=== PATIENT | female | born 1980 | race Caucasian/White ===

== ENCOUNTER → 2016-05-09 | Emergency (ER) | payer BC ==
[2016-05-09 06:50] VITALS: BP 128/85
[2016-05-09 07:41] LABS: Urine Bacteria Absent (Absent); Urine Bilirubin Negative (Negative); Urine Glucose Negative (Negative); Urine Nitrite Negative (Negative)
--- NOTE | 2016-05-11 15:57 | ED ---
Progress - Progress Note Progress Note: Pt's urine cx reveals e. coli bacteria - pt LWBS day of urine collection - needs to return to ED for assessment. Param, RN to call - discussed w/ her at 15 :56. Course/Dx - Diagnoses Provider Diagnoses: Patient left without being seen Addendum entered and electronically signed by Abimbola Dove PA 05/11/16 17:18: ED Addendum Addendum: Param could not call pt so I (Abimbola ODONNELL-C) resumed task Spoke w/ Shreya at 17:16 - she reports she could not wait at our ED the day of her sx [facility] - she was dx'd w/ UTI there and received anbx tx. No further action to be taken at this time. Addendum entered and electronically signed by Lon Woodward MD 05/12/16 00: 24: ED Addendum Addendum: anabelle
--- NOTE | 2016-05-12 14:47 | PN ---
Progress Note - Progress Note Note: urine culture positive for e coli. already on antibiotic that she was given [facility]. no further action needed at this time.
== END | disposition home or self-care (01) ==
LOC: ED 06:44
DX: R30.0 Dysuria (principal); Z53.21 Procedure and treatment not carried out due to patient leaving prior to being seen by health care provider
CPT/HCPCS: 81003; 81015; 87077; 87086; 87186; 99282

== ENCOUNTER 2019-06-18 17:44 | Emergency (ER) | payer BC, OTHER ==
--- OUTSIDE RECORDS SUMMARY | 2019-06-18 18:53 | XMS REPORT | Continuity of Care Document ---
:1980 External Reference #:[id number] Author Name MANUEL Oshea-Toshia (transmitted by agent of provider Hilda Vila) Address [address] [place] [address] Care Team Providers Name Role Phone Olman Yeh - Emergency Medicine Care Team Information Gold Leaf Roller Unavailable Luna Anderson MD Care Team Information Gold Leaf Roller [phone] Fabian Murray MD - Orthopaedic Care Team Information Gold Leaf Roller Surgery Problems Active Problems Provider Date Goiter Lizzy Tovar M.D. Onset: 02/05/2011 Depressive disorder Lizzy Tovar M.D. Onset: 02/05/2011 Social History Type Date Description Comments Sex Unknown Tobacco Use Start: Unknown Never Smoked Cigarettes ETOH Use Denies alcohol use Tobacco Use Start: Unknown End: Unknown Patient is a former smoker Smoking Status Reviewed: 06/17/18 Patient is a former smoker Allergies, Adverse Reactions, Alerts Description No Known Drug Allergies Medications Active Medications SIG Qnty Indications Ordering Provider Date Bupropion Hydrochloride Take One Tablet 90tabs Simona Woodson, 06/21/2018 ER (SR) By Mouth Every M.D., R.D. 100mg Tablets ER Day 12HR Sertraline HCL Take One Tablet 90tabs F32.9 Simona Woodson, 05/26/2012 50mg Tablets By Mouth Every M.D., R.D. Day Lyrica 1 by mouth Unknown 75mg Capsules three time daily Metaxalone 1 tab by mouth Unknown 800mg Tablets three times a day for muscle spasm Meloxicam take one tablet 60tabs Simona Woodson, 7.5mg Tablets by mouth twice M.D., R.D. a day Medications Administered in Office Medication SIG Qnty Indications Ordering Provider Date TB,Intradermal (PPD, Mantoux) Heavenly Mix M.D. 01/16/1982 Injection Immunizations CPT Code Status Date Vaccine Lot # [id number] Given 10/14/2006 Tdap (Adacel) [id number] 89924 Given 11/04/1996 DT (Adult) 23043 Given 09/17/1993 Hepatitus B Vaccine (Per 0.5 ML) 98890 Given 04/18/1993 Hepatitus B Vaccine (Per 0.5 ML) 46729 Given 03/18/1993 Hepatitus B Vaccine (Per 0.5 ML) 29430 Given 03/22/1991 DT (Pediatric) 19289 Given 08/26/1985 DPT 01522 Given 08/01/1982 Opv (Poliovirus,Oral) 48826 Given 08/01/1982 MMR (Measles,Mumps,Rubella) 02371 Given 08/01/1982 DPT 32069 Given 04/15/1982 MMR (Measles,Mumps,Rubella) 50518 Given 1981 DPT 78807 Given 1981 Opv (Poliovirus,Oral) 60359 Given 1981 DPT 07257 Given 1981 Opv (Poliovirus,Oral) 20326 Given 1981 DPT 19896 Refused 01/01/2016 Influenza Virus Vaccine, Quadrivalent, 3 Yr > Quad , Preserv Free Vital Signs Date Vital Result Comment 06/03/2019 2:27pm BP Systolic 118 mmHg BP Diastolic 74 mmHg Heart Rate 74 /min Body Temperature 99.1 F Respiratory Rate 16 /min O2 % BldC Oximetry 97 % 05/23/2019 3:47pm BP Systolic 118 mmHg BP Diastolic 72 mmHg Heart Rate 78 /min Body Temperature 97.7 F Respiratory Rate 16 /min O2 % BldC Oximetry 97 % Results Test Acquired Date Facility Test Result H/L Range Note Laboratory test 06/03/2019 [facility] Miscellaneous < pending> 1 finding [phone] Test Laboratory test 06/03/2019 [facility] Miscellaneous < pending> 2 finding [phone] Test Laboratory test 06/03/2019 [facility] House [facility] Flu PCR Neg A Neg finding (726)- - B 1 06/03/19 (ThuJun 02) 03:[address] Covid 19 Test code 627668 2 06/03/19 (ThuJun 02) 03:[address] Resp pathogen Panel Lab Code RESPM Procedures Date Code Description Status 06/03/2019 34939 Nebulizer Treatment Completed Medical Devices Description No Information Available Encounters Type Date Location Provider Dx Diagnosis Office Visit 05/23/2019 Main Office Maria Alejandra Baldwin5.562 Pain in left knee 3:45p Corazon, R.D. Office Visit 02/04/2019 Main Office Fred Maxwell Acute sinusitis, 10:30a MD unspecified Assessments Date Code Description Provider 06/03/2019 J20.9 Acute bronchitis MANUEL Oshea-C 05/23/2019 M25.562 Pain in left knee Simona Woodson M.D., R.D. 02/04/2019 J01.Kamini Acute sinusitis, unspecified Morro Godoy MD Plan of Treatment No Information Available Functional Status Description No Information Available Mental Status Description No Information Available Referrals Refer to Reason for Referral Status Appt Date Fabian Murray MD Scheduled 05/27/2019 [address] [facility] [address] [phone]
--- OUTSIDE RECORDS SUMMARY | 2019-06-18 18:53 | XMS REPORT | Continuity of Care Document ---
:1980 External Reference #:[id number] Author Name Simona Woodson M.D., R.DMai (transmitted by agent of provider Abimbola Smith) Address [address] [place] [address] Care Team Providers Name Role Phone Olman Yeh - Emergency Medicine Care Team Information Winding Rack Operator Unavailable Luna Anderson [place] [place] [place] [facility] Care Team Information Winding Rack Operator [phone] Problems Active Problems Provider Date Goiter Lizzy [...] CPT Code Status Date Vaccine Lot # [id number] Given 10/14/2006 Tdap (Adacel) [id number] 56737 Given 11/04/1996 DT (Adult) 79657 Given 09/17/1993 Hepatitus B Vaccine (Per 0.5 ML) 79967 Given 04/18/1993 Hepatitus B Vaccine (Per 0.5 ML) 62011 Given 03/18/1993 Hepatitus B Vaccine (Per 0.5 ML) 88967 Given 03/22/1991 DT (Pediatric) 67626 Given 08/26/1985 DPT 80175 Given 08/01/1982 Opv (Poliovirus,Oral) 30031 Given 08/01/1982 MMR (Measles,Mumps,Rubella) 47216 Given 08/01/1982 DPT 75621 Given 04/15/1982 MMR (Measles,Mumps,Rubella) 09431 Given 1981 DPT 29754 Given 1981 Opv (Poliovirus,Oral) 53751 Given 1981 DPT 53128 Given 1981 Opv (Poliovirus,Oral) 46423 Given 1981 DPT 37343 Refused 01/01/2016 Influenza Virus Vaccine, Quadrivalent, 3 Yr > Quad , Preserv Free Vital Signs Date Vital Result Comment 05/23/2019 3:47pm BP Systolic 118 mmHg BP Diastolic 72 mmHg Heart Rate 78 /min Body Temperature 97.7 F Respiratory Rate 16 /min O2 % BldC Oximetry 97 % 02/04/2019 10:31am Weight 194.00 lb Weight 87.998 kg BP Systolic 120 mmHg BP Diastolic 80 mmHg Heart Rate 97 /min Body Temperature 97.6 F Respiratory Rate 16 /min O2 % BldC Oximetry 98 % Results Description No Information Available Procedures Description No Information Available Medical Devices Description No Information Available Encounters Type Date Location Provider Dx Diagnosis Office Visit 05/23/2019 Main Office Simona Woodson, M25.562 Pain in left knee 3:45p M.D., R.D. Office Visit 02/04/2019 Main Office Morro Godoy, J01.90 Acute sinusitis, 10:30a unspecified Assessments Date Code Description Provider 05/23/2019 M25.562 Pain in left knee Simona Woodson M.D., R.D. 02/04/2019 J01.90 Acute sinusitis, unspecified Morro Godoy MD Plan of Treatment No Information Available Functional Status Description No Information Available Mental Status Description No Information Available Referrals Description No Information Available
--- OUTSIDE RECORDS SUMMARY | 2019-06-18 18:53 | XMS REPORT | Continuity of Care Document ---
:1980 External Reference #:[id number] Author Name MANUEL Oshea-Toshia (transmitted by agent of provider Abimbola Smith) Address [address] [place] [address] Care Team Providers Name Role Phone Olman Yeh - Emergency Medicine Care Team Information Silver Miner Unavailable Luna Anderson MD Care Team Information Silver Miner [phone] Fabian Murray MD - Orthopaedic Care Team Information Silver Miner Surgery Problems Active Problems Provider Date Goiter [...] spasm Meloxicam take one tablet 60tabs Simona Lentzley, 7.5mg Tablets by mouth twice M.D., R.D. a day Medications Administered in Office Medication SIG Qnty Indications Ordering Provider Date TB,Intradermal (PPD, Mantoux) Heavenly Mix M.D. 01/16/1982 Injection Immunizations CPT Code Status Date Vaccine Lot # [id number] Given 10/14/2006 Tdap (Adacel) [id number] 35556 Given 11/04/1996 DT (Adult) 48641 Given 09/17/1993 Hepatitus B Vaccine (Per 0.5 ML) 18470 Given 04/18/1993 Hepatitus B Vaccine (Per 0.5 ML) 33280 Given 03/18/1993 Hepatitus B Vaccine (Per 0.5 ML) 43029 Given 03/22/1991 DT (Pediatric) 08134 Given 08/26/1985 DPT 98476 Given 08/01/1982 Opv (Poliovirus,Oral) 30223 Given 08/01/1982 MMR (Measles,Mumps,Rubella) 52291 Given 08/01/1982 DPT 44710 Given 04/15/1982 MMR (Measles,Mumps,Rubella) 80735 Given 1981 DPT 28999 Given 1981 Opv (Poliovirus,Oral) 61521 Given 1981 DPT 11191 Given 1981 Opv (Poliovirus,Oral) 14953 Given 1981 DPT 60980 Refused 01/01/2016 Influenza Virus Vaccine, Quadrivalent, 3 [...] BldC Oximetry 97 % Results Test Acquired Facility Test Result H/L Range Note Date Laboratory test 06/03/2019 [facility] Covid19, PCR COVID19 Not Dete 1 finding [phone] <SEE NOTE> Respiratory 06/03/2019 [facility] Specimen NASOPHARYNGEAL S 2 Pathogen Panel [phone] Source <SEE NOTE> PCR Adenovirus Negative Negative Coronavirus 229E Negative Negative Coronavirus Hku1 Negative Negative Coronavirus NL63 Negative Negative Coronavirus Oc43 Negative Negative Human Rhinovirus/ Enterovirus Negative Negative Human Metapneumovirus Negative Negative Influenza A Negative Negative Influenza B Negative Negative Parainfluenza Virus 1 Negative Negative Parainfluenza Virus 2 Negative Negative Parainfluenza Virus 3 Negative Negative Parainfluenza Virus 4 Negative Negative Respiratory Syncytial Virus Negative Negative Bordetella pertussis Negative Negative Chlamydophila pneumoniae Negative Negative Mycoplasma pneumoniae Negative Negative Interpretation See Comment 3 Laboratory test finding 06/03/2019 In House Lab Flu PCR Neg A Neg B (936)- - 1 COVID19 Not Detected TEST RESULT FLAG UNITS REFERENCE INTERVAL SARS-CoV-2, SERA A Not Detected Not Detected S-CoV-2, SERA A Not Detected Not Detected 01 Testing was performed using the rosana(R) SARS-CoV-2 test. This test was developed and its performance characteristics determined by [employer]. This test has not been FDA cleared or approved. This test has been authorized by FDA under an Emergency Use Authorization (EUA). This test is only authorized for the duration of time the declaration that circumstances exist justifying the authorization of the emergency use of in vitro diagnostic tests for detection of SARS-CoV-2 virus and/or diagnosis of COVID-19 infection under section 564(b)(1) of the Act, 21 U.S.C. 360bbb-3(b)(1), unless the authorization is terminated or revoked sooner. Test Report Date: 06/07/2019 Tested at: [facility] [address] [address] Dir: Eliud Farah MD 2 NASOPHARYNGEAL SWAB 3 This assay is not predicted to detect SARS-coronavirus (CoV), MERS-CoV, or the virus (SARS-CoV-2) causing coronavirus disease-2019 (COVID-19). ADDITIONAL INFORMATION This assay is performed using the FDA-cleared Génie [employer] Respiratory Panel ([employer] Test Performed by: [address] [address] Fire Apparatus Engineer: Raghavendra Montalvo M.D. Ph.D.; CLIA# [id number] Procedures Date Code Description Status 06/03/2019 37333 Nebulizer Treatment Completed Medical Devices Description No Information Available Encounters Type Date Location Provider Dx Diagnosis Office Visit 06/03/2019 Main Office Karen Mar J20.9 Acute bronchitis, 2:15p ASSET PROTECTION OFFICER-C unspecified Z03.818 Encntr for obs for susp expsr to oth biolg agents ruled out Office Visit 05/23/2019 3:45p Main Office Simona Woodson M25.562 Pain in left knee MJames, R.D. Office Visit 02/04/2019 10:30a Main Office Morro Matthews.Kamini Acute sinusitis, MD Walt unspecified Assessments Date Code Description Provider 06/03/2019 J20.9 Acute bronchitis SANDRA Oshea 06/03/2019 Z03.818 Encounter for observation for suspected SANDRA Oshea exposure to other biological agents ruled out 05/23/2019 M25.562 Pain in left knee Simona Woodson M.D., R.D. 02/04/2019 J01.Kamini Acute sinusitis, unspecified Morro Godoy MD Plan of Treatment 06/03/2019 - MANUEL Oshea-CJ20.9 Acute bronchitisComments:continue symptomatic treatment, respiratory viral culture and COVID 19 testing today, self isolationuntil results are zyervwrrI21.818 Encounter for observation for suspected exposure to other biological agents ruled out Functional Status Description No Information Available Mental Status Description No Information Available Referrals Refer to Reason for Referral Status Appt Date Fabian Murray MD Scheduled 05/27/2019 [address] [facility] [address] [phone]
--- OUTSIDE RECORDS SUMMARY | 2019-06-18 18:53 | XMS REPORT | Continuity of Care Document ---
:1980 External Reference #:[id number] Author Name Fabian Murray MD (transmitted by agent of provider Belgica Zabala) Address [address] [place] [address] Care Team Providers Name Role Phone Simona Woodson MD - Family Care Team Information New Order Clerk Medicine Problems Active Problems Provider Date Knee joint effusion Fabian Murray MD Onset: 05/27/2019 Patellar tendonitis Fabian Murray MD Onset: 05/27/2019 Lumbar spondylosis Brian Bran M.D. Onset: 03/15/2015 Cervical spondylosis without myelopathy Brian Bran M.D. Onset: 2014 Social History Type Date Description Comments Sex Unknown ETOH Use Denies alcohol use Tobacco Use Start: Unknown End: Unknown Patient is a former smoker Recreational Drug Use Denies Drug Use Smoking Status Reviewed: 05/27/19 Patient is a former smoker Allergies, Adverse Reactions, Alerts Description No Known Drug Allergies Medications Active Medications SIG Qnty Indications Ordering Provider Date Wellbutrin SR take 1 tablet by Unknown 100mg mouth every Tablets ER 12HR Zoloft 1 by mouth every Unknown 100mg Tablets day Lyrica take one Unknown 75mg Capsules capsule/tablet po tid Metaxalone take 1 tablet 3 Unknown 800mg Tablets times a day as needed Meloxicam take one tab Unknown 7.5mg Tablets twice daily as needed for pain, avoid other nsaids Immunizations Description No Information Available Vital Signs Date Vital Result Comment 05/27/2019 10:53am Height 67 inches 5'7" Weight 190.00 lb Heart Rate 80 /min BP Systolic 110 mmHg BP Diastolic 68 mmHg Respiratory Rate 18 /min Pain Level 5 BMI (Body Mass Index) 29.8 kg/m2 03/30/2015 9:47am Height 67 inches 5'7" Weight 192.00 lb Heart Rate 78 /min BP Systolic Sitting 126 mmHg BP Diastolic Sitting 86 mmHg Pain Level 7 BMI (Body Mass Index) 30.1 kg/m2 Results Description No Information Available Procedures Description No Information Available Medical Devices Description No Information Available Encounters Type Date Location Provider Dx Diagnosis Office Visit 05/27/2019 [facility] Kalyn Galvin76.52 Patellar 10:30a at [facility] tendinitis, left knee Assessments Date Code Description Provider 05/27/2019 M76.52 Patellar tendinitis, left knee Fabian Murray MD Plan of Treatment Future Appointment(s):07/01/2019 11:15 am - Fabian Murray MD at [facility]/27/2019 - Fbaian Murray MDM76.52 Patellar tendinitis, left kneeNew Therapy:Physical TherapyFollow up:Follow Up: 4 weeks Functional Status Description No Information Available Mental Status Description No Information Available Referrals Description No Information Available
[2019-06-18 19:21] LABS: ABS Eosinophils 0.1 10^3/ul (0-0.6); ABS Lymphocytes 2.8 10^3/ul (1.0-4.8); ABS Monocytes 0.5 10^3/ul (0-0.8); ABS Neutrophils 4.5 10^3/ul (1.5-7.7); Hematocrit 44 % (35-47); Hemoglobin 14.9 g/dL (12.0-16.0); Lymphocyte % 35.5 %; Mean Corpuscular HGB Conc 34 g/dL (31-36); Mean Corpuscular Hemoglobin 30 pg (27-31); Mean Corpuscular Volume 88 fL (80-97); Mean Platelet Volume 8.7 fL (7.4-10.4); Nucleated Red Blood Cells % 0.2; Platelet Count 237 10^3/uL (150-450); Red Blood Count 4.97 10^6 /uL (3.70-4.87); Red Cell Distribution Width 13 % (10-15)
--- NOTE | 2019-06-18 19:32 | ED ---
Shortness of Breath - HPI Summary HPI Summary: Patient is a 39 y/o F presenting to [facility] with complaints of SOB and cough. Patient states that she has been having some SOB and a productive cough since 05/29/19. She went to her PCP on 06/03/19 who tested for influenza and COVID-19. Both resulted negative. The patient was given albuterol and doxycycline. However , her Sx have progressed. She notes that her cough has become dry but she continues to have worsening SOB. SOB is characterized to be worse on exertion. Fevers are denied. Patient states that her children have had similar Sx. They were diagnosed with URI and have been improved today. No recent travel or flying noted, no positive COVID contacts noted. Home medications and allergies are reviewed. - History of Current Complaint Hx Obtained From: Patient Onset/Duration: Lasting Weeks, Still Present Dyspnea At: Exertion Aggravating Factors: Other - exertion Associated Signs & Symptoms: Cough (Nonproductive) - Allergy/Home Medications Allergies/Adverse Reactions: Allergies Allergy/AdvReac Type Severity Reaction Status Date / Time GLUTEN Allergy Mild BLOATING Uncoded 01/25/19 14:48 Home Medications: Home Medications Sertraline HCl [Zoloft] 50 mg PO DAILY 10/07/13 [History Confirmed 01/25/19] buPROPion TAB* [Wellbutrin TAB*] 100 mg PO DAILY 02/22/15 [History Confirmed 08/08] Metaxalone [Metaxall] 800 mg PO DAILY 04/21/16 [History Confirmed 01/25/19] Pregabalin [Lyrica] 75 mg PO BID 07/18/16 [History Confirmed 01/25/19] PMH/Surg Hx/FS Hx/Imm Hx Endocrine/Hematology History: Reports: Hx Thyroid Disease Denies: Hx Anticoagulant Therapy, Hx Diabetes Cardiovascular History: Denies: Hx Hypertension, Hx Pacemaker/ICD, Other Cardiovascular Problems/ Disorders Respiratory History: Reports: Hx Sleep Apnea Denies: Hx Asthma, Hx Chronic Obstructive Pulmonary Disease (COPD), Other Respiratory Problems/Disorders GI History: Reports: Hx Irritable Bowel, Hx Ulcer - IN THE PAST, Other GI Disorders - GLUTEN ALLERGY History: Denies: Hx Renal Disease - frequent uti's, Other Problems/Disorders Musculoskeletal History: Reports: Hx Arthritis Sensory History: Denies: Hx Contacts or Glasses, Hx Hearing Aid Opthamlomology History: Denies: Hx Contacts or Glasses Neurological History: Reports: Hx Migraine - Q2 WEEKS- TREAT WITH EXCEDRIN MIGRAINE, Other Neuro Impairments/Disorders - PAIN CLINIC PT Denies: Hx Dementia, Hx Seizures Psychiatric History: Reports: Hx Depression Denies: Hx Panic Disorder, Hx Substance Abuse - Surgical History Surgery Procedure, Year, and Place: ENDOSCOPY'S -@ [facility] [place];. WISDOM TEETH REMOVED; . D+C; Hx Anesthesia Reactions: No Infectious Disease History: No Infectious Disease History: Denies: Hx Hepatitis, Hx Human Immunodeficiency Virus (HIV), History Other Infectious Disease, Traveled Outside the [place] in Last 30 Days - Family History Known Family History: Negative: Cardiac Disease, Hypertension, Diabetes - Social History Alcohol Use: Rare Alcohol Amount: <2 Substance Use Type: Reports: None Smoking Status (MU): Former Smoker Have You Smoked in the Last Year: No Review of Systems Negative: Fever Positive: Shortness Of Breath, Cough All Other Systems Reviewed And Are Negative: Yes Physical Exam - Summary Physical Exam Summary: VITAL SIGNS: Reviewed. GENERAL: Patient is a well-developed and nourished female who is lying comfortable in the stretcher. Patient is not in any acute respiratory distress. HEAD AND FACE: No signs of trauma. No ecchymosis, hematomas or skull depressions. No sinus tenderness. EYES: PERRLA, EOMI x 2, No injected conjunctiva, no nystagmus. EARS: Hearing grossly intact. Ear canals and tympanic membranes are within normal limits. MOUTH: Oropharynx within normal limits. NECK: Supple, trachea is midline, no adenopathy, no JVD, no carotid bruit, no c- spine tenderness, neck with full ROM. CHEST: Symmetric, no tenderness at palpation. LUNGS: Clear to auscultation bilaterally. No wheezing or crackles. CVS: Regular rate and rhythm, S1 and S2 present, no murmurs or gallops appreciated. ABDOMEN: Soft, non-tender. No signs of distention. No rebound, no guarding, and no masses palpated. Bowel sounds are normal. EXTREMITIES: FROM in all major joints, no edema, no cyanosis or clubbing. NEURO: Alert and oriented x 3. No acute neurological deficits. Speech is normal and follows commands. SKIN: Dry and warm. Triage Information Reviewed: Yes Vital Signs On Initial Exam: Initial Vitals Temp Pulse Resp BP Pulse Ox 98.9 F 86 20 132/90 97 06/18/19 17:46 06/18/19 17:46 06/18/19 17:46 06/18/19 17:46 06/18/19 17:46 Vital Signs Reviewed: Yes Procedures - Sedation Patient Received Moderate/Deep Sedation with Procedure: No Diagnostics - Vital Signs Vital Signs Temp Pulse Resp BP Pulse Ox 06/18/19 17:46 98.9 F 86 20 132/90 97 - Laboratory Lab Results: Lab Results 06/18/19 06/18/19 Range/Units 19:00 19:00 WBC 8.0 (3.5-10.8) 10^3/uL RBC 4.97 H (3.70-4.87) 10^6 /uL Hgb 14.9 (12.0-16.0) g/dL Hct 44 (35-47) % MCV 88 (80-97) fL MCH 30 (27-31) pg MCHC 34 (31-36) g/dL RDW 13 (10-15) % Plt Count 237 (150-450) 10^3/uL MPV 8.7 (7.4-10.4) fL Neut % (Auto) 56.8 % Lymph % (Auto) 35.5 % [place] % (Auto) 6.5 % Eos % (Auto) 1.0 % Baso % (Auto) 0.2 % Absolute Neuts (auto) 4.5 (1.5-7.7) 10^3/ul Absolute Lymphs (auto) 2.8 (1.0-4.8) 10^3/ul Absolute Monos (auto) 0.5 (0-0.8) 10^3/ul Absolute Eos (auto) 0.1 (0-0.6) 10^3/ul Absolute Basos (auto) 0.0 (0-0.2) 10^3/ul Absolute Nucleated RBC 0.0 10^3/ul Nucleated RBC % 0.2 Influenza A (Rapid) Pending Influenza B (Rapid) Pending Result Diagrams: 06/18/19 19:00 06/18/19 19:00 Lab Statement: Any lab studies that have been ordered have been reviewed, and results considered in the medical decision making process. - Radiology CXR Radiology Interpretation Completed By: ED Physician Summary of Radiographic Findings: No acute process, pending official report. - EKG 1910 Cardiac Rate: NL - rate of 77 BPM EKG Rhythm: Sinus Rhythm Summary of EKG Findings: EKG showed sinus rhythm with rate of 77 BPM, no ST elevations, no STEMI. ED physician has reviewed and interpreted this EKG. Course/Dx - Course Assessment/Plan: Patient is a 39 y/o F presenting to [facility] with complaints of SOB and cough. Patient states that she has been having some SOB and a productive cough since 05/29/19. She went to her PCP on 06/03/19 who tested for influenza and COVID-19. Both resulted negative. The patient was given albuterol and doxycycline. However, her Sx have progressed. She notes that her cough has become dry but she continues to have worsening SOB. SOB is characterized to be worse on exertion. Fevers are denied. Patient states that her children have had similar Sx. They were diagnosed with URI and have been improved today. No recent travel or flying noted, no positive COVID contacts noted. Home medications and allergies are reviewed. 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 Past medical records reviewed. Blood test w/o a significant abnormality except for RBCs of 4.97. Influenza A and B is negative. Chest x-ray shows no acute pathology. The patient is hemodynamically stable. Therefore this point I discussed findings test results with the patient and the need to follow with the primary care physician. The patient will be discharged home, she will be requested to be quarantined, on isolation for 14 days. She was recommended to return to the emergency department if she develops any other symptom. The patient understands and agrees. - Diagnoses Provider Diagnoses: Dyspnea Discharge ED - Sign-Out/Discharge Documenting (check all that apply): Patient Departure - discharge - Discharge Plan Condition: Stable Disposition: HOME Patient Education Materials: Dyspnea (ED) Forms: COVID-19 Eval & Not Tested Referrals: Simona Ross MD [Primary Care Provider] - 3 Days Additional Instructions: PLEASE RETURN TO ED FOR ANY NEW OR WORSENING SYMPTOMS. PLEASE FOLLOWUP WITH YOUR PRIMARY CARE PHYSICIAN WITHIN THREE DAYS. - Billing Disposition and Condition Condition: STABLE Disposition: Home - Attestation Statements Document Initiated by Scribe: Yes Documenting Scribe: LOBITO LEBRON Provider For Whom Scribe is Documenting (Include Credential): YULIANA CHAUHAN MD Scribe Attestation: I, LOBITO LEBRON, scribed for YULIANA CHAUHAN MD on 06/18/19 at 2123. Scribe Documentation Reviewed: Yes Provider Attestation: The documentation as recorded by the scribeLOBITO accurately reflects the service I personally performed and the decisions made by me, YULIANA CHAUHAN MD Status of Scribe Document: Viewed
[2019-06-18 19:33] LABS: Albumin 4.6 g/dL (3.2-5.2); Albumin/Globulin Ratio 1.9 (1-3); BUN/Creatinine Ratio 12.9 (8-20); C Reactive Protein 1.56 mg/L (<8.01); Calcium 9.3 mg/dL (8.6-10.3); EGFR African American 113.3 (>60); EGFR Non-African American 93.6 (>60); Globulin 2.4 g/dL (2-4); Potassium 3.8 mmol/L (3.5-5.0); Total Bilirubin 0.5 mg/dL (0.2-1.0)
[2019-06-18 19:35] LABS: Troponin I 0.01 ng/mL (<0.03)
[2019-06-18 19:37] LABS: CKMB ng/mL 0.8 ng/mL (0.6-6.3)
[2019-06-18 19:48] LABS: Influenza A Molecular Negative (Negative); Influenza B Molecular Negative (Negative)
[2019-06-18 20:26] VITALS: BP 122/95
== END 2019-06-18 20:24 | disposition home or self-care (01) ==
LOC: ED 17:44
DX: R06.00 Dyspnea, unspecified (principal); R06.02 Shortness of breath; R05 Cough; Z87.891 Personal history of nicotine dependence; E03.9 Hypothyroidism, unspecified; F32.9 Major depressive disorder, single episode, unspecified; G47.30 Sleep apnea, unspecified
CPT/HCPCS: 36415; 71045; 80053; 82550; 82553; 83605; 83880; 84484; 85025; 85379; 86140; 87040; 87635; 93005; 99283